=== PATIENT | female | born 1985 | race Caucasian/White ===

== ENCOUNTER 2019-09-20 06:31 | Emergency (ER) | payer BC, OTHER ==
[2019-09-20 06:51] VITALS: BMI 23.6
--- NOTE | 2019-09-20 07:31 | PDOC ---
History of Present Illness - General Chief Complaint: Pain Stated Complaint: ABD PAIN, S/P Past History - Medical History Allergies/Adverse Reactions: Allergies Allergy/AdvReac Type Severity Reaction Status Date / Time No Known Allergies Allergy Verified 09/20/19 06:42 Home Medications: Ambulatory Orders Noreth-Ethinyl Estradiol/Iron [Generess Fe Chewable Tablet] 1 each PO DAILY 08/03/14 Phenazopyridine HCl [Pyridium] 100 mg PO TID #6 tablet 08/03/14 Sulfamethoxazole/Trimethoprim [Bactrim Ds -] 1 tab PO BID #14 tablet 08/03/14 Disorders: Yes (frequent UTI) - Reproductive History Is Patient Now?: No - Psycho-Social/Smoking History Smoking History: Never smoked Information on smoking cessation initiated: No - Substance Abuse Hx (Audit-C & DAST Scrn) How often the patient has a drink containing alcohol: Never Score: In Men: 4 or > Positive; In Women: 3 or > Positive: 0 Screen Result (Pos requires Nsg. Audit-10AR): Negative In the last yr the pt used illegal drug/Rx for NonMed reason: No Score: Yes response is considered Positive: 0 Screen Result (Positive result requires Nsg. DAST-10): Negative *Physical Exam - Vital Signs Last Vital Signs Temp Pulse Resp BP Pulse Ox 99.0 F 94 H 20 120/79 98 09/20/19 06:40 09/20/19 06:40 09/20/19 06:40 09/20/19 06:40 09/20/19 06:40 ED Treatment Course - LABORATORY CBC & Chemistry Diagram: 09/20/19 07:55 09/20/19 07:50 Discharge - Discharge Information Problems reviewed: Yes Clinical Impression/Diagnosis: S/P section Abdominal pain Qualifiers: Abdominal location: generalized Qualified Code(s): R10.84 - Generalized abdominal pain Condition: Stable Disposition: HOME - Admission No - Follow up/Referral Referrals: Dahiana Delgado MD [Primary Care Provider] - - Patient Discharge Instructions Additional Instructions: You are here for abdominal pain. We did lab work and CT scan. We gave you the result of the CT scan. Please follow up with your OBGYN. You understand all the results. For the pain control, please use Tylenol and motrin Over the counter. Please don't overdose, read the label. If you are experienced worsening pain, nausea, vomiting, please come back to the ED. - Post Discharge Activity
[2019-09-20] MEDS ORDERED: ACETAMINOPHEN 325 MG TABLET (FP) PO ONE (07:51)
[2019-09-20] MEDS ORDERED: ACETAMINOPHEN 325 MG TABLET (FP) ONE (08:00)
[2019-09-20 08:47] LABS: BASO % 0.8 % (0-2.0); EOS % 1.3 % (0-4.5); HEMATOCRIT 46.9 % (32.4-45.2); HEMOGLOBIN 16.1 GM/dL (10.7-15.3); LYMPH % 22.5 % (8-40); MCH 32.5 pg (25.7-33.7); MCHC 34.3 g/dl (32.0-36.0); MEAN CELL VOLUME 94.7 fl (80-96); MEAN PLT VOLUME 8.9 fl (7.5-11.1); MONO % 4.3 % (3.8-10.2); NEUT % 71.1 % (42.8-82.8); PLATELET COUNT 308 K/MM3 (134-434); RBC 4.95 M/mm3 (3.60-5.2); RDW 13.2 % (11.6-15.6); WHITE BLOOD COUNT 7.8 K/mm3 (4.0-10.0)
[2019-09-20 09:06] LABS: INR 0.97 (0.83-1.09); PROTHROMBIN TIME (PATIENT) 11.5 SEC (9.7-13.0)
[2019-09-20 09:09] LABS: ACTIVATED PTT 30.8 SECONDS (25.2-36.5)
[2019-09-20 09:13] LABS: ALBUMIN 3.7 g/dl (3.4-5.0); BILIRUBIN,TOTAL 0.6 mg/dL (0.2-1); CALCIUM 9.2 mg/dL (8.5-10.1); CREATININE 0.7 mg/dL (0.55-1.3); POTASSIUM 4.6 mmol/L (3.5-5.1); TOT PROT 7.4 g/dl (6.4-8.2)
[2019-09-20 09:14] LABS: EPI CELLS 4 /uL (0-25.1); HYALINE CASTS 0 /uL (0-3.1); URINE APPEARANCE CLEAR; URINE BACTERIA 13 /uL (0-1359); URINE BILIRUBIN NEGATIVE (NEGATIVE); URINE COLOR YELLOW; URINE GLUCOSE (UA) NEGATIVE (NEGATIVE); URINE KETONE NEGATIVE (NEGATIVE); URINE LEUK ESTERASE NEGATIVE (NEGATIVE); URINE NITRITE NEGATIVE (NEGATIVE); URINE PROTEIN NEGATIVE (NEGATIVE); URINE RBC 20 /uL (0-23.9); URINE UROBILINOGEN 0.2 mg/dL (0.2-1.0); URINE WBC 2 /uL (0-25.8)
--- NOTE | 2019-09-20 09:41 | PDOC ---
Attending Attestation - Resident Resident Name: Jeremiah Small - ED Attending Attestation I have performed the following: I have examined & evaluated the patient, The case was reviewed & discussed with the resident, I agree w/resident's findings & plan - HPI HPI: 09/20/19 09:36 Healthy 34-year-old female G2, P2 status post second 2 weeks ago presents now with mid/upper abdominal pain for 2 days, no associated nausea/vomiting, unknown last bowel movement but likely within the last few days. + dysuria without frequency/hematuria, slight vaginal bleeding without discharge. no surgical site redness/swelling/pain/discharge. seen by OB on day prior to sx onset, was fine then. no post-prandial abd pain, no known h/o gallstones - Physicial Exam PE: 09/20/19 09:40 Vital signs stable, afebrile Well-appearing seated comfortably in stretcher No jaundice or pallor Heart is regular, lungs are clear Abdomen is slightly distended, but soft. site is clean/dry/intact without palpable fluid collection or hematoma. Patient is tender somewhat diffusely predominantly in the mid abdomen and supraumbilically, no guarding or rebound, no focal right upper quadrant tenderness. No CVA tenderness. - Medical Decision Making 09/20/19 09:40 34-year-old female 2 weeks postop presents with new onset of abdominal pain over the last 2 to 3 days, question associated with constipation, tender somewhat diffusely with some guarding, no rebound. site itself is not obviously infected, patient is hemodynamically stable without other [employer] complaints. Is complaining of dysuria, possible UTI. Check labs, urinalysis CT of the abdomen and pelvis to rule out postoperative complication Pain control IV fluids Reassess Discharge - Discharge Information Problems reviewed: Yes Clinical Impression/Diagnosis: S/P section Abdominal pain Qualifiers: Abdominal location: generalized Qualified Code(s): R10.84 - Generalized abdominal pain Condition: Stable - Follow up/Referral Referrals: Dahiana Delgado MD [Primary Care Provider] - - Patient Discharge Instructions - Post Discharge Activity
[2019-09-20 11:23] VITALS: PULSE 74; TEMP 97.9
[2019-09-20 12:34] VITALS: BP 137/92
== END 2019-09-20 12:36 | disposition home or self-care (01) ==
LOC: JER 06:31
DX: R10.84 Generalized abdominal pain (principal)
CPT/HCPCS: 36415; 74177-TC; 80053; 81003; 83690; 85025; 85610; 85730; 86850; 86870; 86900; 86901; 86902; 87086; 99285-25; Q9967